=== PATIENT | female | born 1970 | race Caucasian/White ===

== ENCOUNTER → 2020-05-09 | Outpatient (CLI) | payer OTHER ==
[2020-05-09 14:22] LABS: HEMOGLOBIN 13.7 gm/dl (12.3-15.3); RED BLOOD COUNT 4.29 M/UL (4.00-5.10); WHITE BLOOD COUNT 4.9 K/UL (4.5-11.0)
[2020-05-09 14:31] LABS: BUN/CREATININE RATIO 14 (0-10)
== END ==
LOC: OPSV 12:30
PROVIDERS: Internal Medicine Infectious Disease
DX: B40.9 Blastomycosis, unspecified (principal)
CPT/HCPCS: 36415; 80053; 85025; 86140; G0463

== ENCOUNTER → 2020-06-06 | Outpatient (CLI) | payer OTHER | LOC: OPSV 13:30 | DX: B40.2 Pulmonary blastomycosis, unspecified (principal) | CPT/HCPCS: 36415; 80076; 86140; G0463 ==

== ENCOUNTER → 2020-06-20 | Outpatient (CLI) | payer OTHER | LOC: KOH-I 13:30 | DX: M25.562 Pain in left knee (principal); M17.12 Unilateral primary osteoarthritis, left knee | CPT/HCPCS: 73562 ==

== ENCOUNTER → 2020-07-18 | Outpatient (CLI) | payer OTHER | LOC: OPSV 12:47 | DX: B40.2 Pulmonary blastomycosis, unspecified (principal) | CPT/HCPCS: G0463 ==

== ENCOUNTER → 2020-08-29 | Outpatient (CLI) | payer BC, OTHER | LOC: CT 14:52 | DX: B40.9 Blastomycosis, unspecified (principal); R91.8 Other nonspecific abnormal finding of lung field | CPT/HCPCS: 71260; Q9967 ==